=== PATIENT | male | born 1955 | race Caucasian/White ===

== ENCOUNTER 2021-02-18 14:46 | Inpatient (IN) | payer BC ==
[~2021-02-18] VITALS: Ht 180.3 cm; Wt 91.6 kg
[~2021-02-18 14:46] MED LIST: COZAAR 25 MG TA25 M1; DESIPRAMINE 2525 M1; LIPITOR 10 MG10 M1; NORVASC5 MG; ZOLOFT100 MG; [UNRECOGNIZED DRUG - OTHER]
[2021-02-18 16:15] VITALS: BP 136/89
[2021-02-18 17:11] LABS: APTT 48.4 Seconds (24.5-32.8); HEMATOCRIT 42.2 % (42.0-52.0); HEMOGLOBIN 13.9 gm/dL (14.0-18.0); INR 0.97; MCH 30.6 pg (26.0-34.0); MCV 92.6 fL (80.0-100.0); PROTIME 10.6 Seconds (10.5-12.1); RBC 4.55 mil/uL (4.50-6.00); RDW 15.4 % (10.5-14.5); WBC 10.5 thou/uL (4.0-11.0)
[2021-02-18 17:25] LABS: ALBUMIN 3.3 g/dL (3.4-5.0); ANION GAP 9 mmol/L (7-16); BUN 20 mg/dL (7-18); CALCIUM 8.7 mg/dL (8.5-10.1); CHLORIDE 102 mmol/L (98-107); CHOLESTEROL 235 mg/dL (<200); CO2 25 mmol/L (21-32); CREATININE 1.1 mg/dL (0.7-1.3); GLUCOSE 85 mg/dL (74-106); HDL CHOLESTEROL 58 mg/dL (>40); LDL CHOLESTEROL 163 mg/dL (<100); POTASSIUM 4.2 mmol/L (3.5-5.1); SGOT 46 U/L (15-37); SGPT 75 U/L (30-65); SODIUM 136 mmol/L (136-145); TC:HDL 4.1 Ratio (Not establshd); TOTAL BILIRUBIN 0.3 mg/dL (0.2-1.0); TOTAL PROTEIN 7.4 g/dL (6.4-8.2); TRIGLYCERIDE 73 mg/dL (<150); VLDL 15 mg/dL (<40)
[2021-02-18] MEDS ORDERED: OMEPRAZOLE 20 M20 M1 PO (18:50)
[2021-02-18] MEDS ORDERED: BUPROPION XL300 MG PO (18:50)
[2021-02-18] MEDS ORDERED: QUETIAPINE FUM300 MG PO (18:51)
[2021-02-18] MEDS ORDERED: FLUOXETINE HCL40 MG PO (18:55)
[2021-02-18] MEDS ORDERED: COLACE100 MG PO (18:56)
--- NOTE | 2021-02-18 19:43 | NUR ---
PT ARRIVED FROM [facility] VIA AMBULANCE. PT WAS SEEN IN THE ER AT [facility] FOR CHEST PAIN AND WAS DISCOVERED TO HAVE ELEVATED TROPONIN. PT RECEIVED NITRO X2, ASA, AND HEPARIN IN [facility]. UPON ARRIVAL PT WAS SEEN BY DR. AVENDANO, STAT APTT WAS ORDERED AND HEPARIN RESTARTED.
[2021-02-18 20:15] VITALS: BP 108/70
[2021-02-18 21:23] LABS: URINE BILIRUBIN NEGATIVE (Negative); URINE BLOOD 2+ (Negative); URINE CLARITY CLEAR; URINE COLOR YELLOW; URINE GLUCOSE-RANDOM* NEGATIVE (Negative); URINE KETONES NEGATIVE (Negative); URINE LEUKOCYTES NEGATIVE (Negative); URINE NITRITE NEGATIVE (Negative); URINE PROTEIN (DIPSTICK) NEGATIVE (Negative); URINE SPECIFIC GRAVITY 1.025 (1.005-1.035); URINE UROBILINOGEN 0.2 E.U./dl (0.2-1.0)
[2021-02-18 21:34] LABS: CASTS None Seen /LPF (None Seen); SQUAMOUS 0-3 Few /LPF (0-3)
[2021-02-18 21:35] LABS: BACTERIA None Seen /HPF (None Seen); CRYSTALS None Seen /LPF (None Seen); URINE RBC 3-10 Few /HPF (NONE SEEN); URINE WBC None Seen /HPF (NONE SEEN)
--- NOTE | 2021-02-19 04:17 | NUR ---
RECEIEVED THE PATIENT AT 1900H.PATIENT IS ALERT AND ORIENTED X4.ON ROOMA IR BREATHING SPONTANEOUSLY.NO COMPLAINTS OF PAIN.NOT IN DISTRESS.ON HEPARIN DRIP ORDERED, FOLLOWING PROTOCOL.CALLED DR. REYES AND RELAYED CRITICAL HIGH TROPONIN, PATIENT IS NOT HAVING CHEST PAIN, VITALLY STABLLE.ORDERS CARRIED OUT.DESPIRAMINE NOT AVAILABLE IN THIS HOSPITAL, ADVISED PATIENT TO LET HIS BRING THIS MED FROM HOME TO BE SENT TO PHARMACY, SO HE CAN TAKETHIS MED LATER.KEPT NPO FROM MIDNIGHT.ALL NEEDS ATTENDED.
[2021-02-19 04:45] VITALS: BP 94/62
[2021-02-19 08:00] VITALS: BP 97/67
[2021-02-19 08:12] LABS: CALCIUM 9.1 mg/dL (8.5-10.1); CREATININE 1.3 mg/dL (0.7-1.3); POTASSIUM 4.5 mmol/L (3.5-5.1)
--- NOTE | 2021-02-19 09:05 | EKG ---
[address] [place] [address] ELECTROCARDIOGRAM REPORT Name: FLIP LUBIN CATHERINE Room #: 208-P ADM IN .R.#: [id number] Admission: 02/18/21 Attend Phys: Franco East MD Discharge: Date of : 59 Report #: [id number] [facility] Test Date: 2021-02-19 Test Time: 07:58:42 Pat Name: FLIP LUBIN Department: Room: 208 P Gender: M Specialist Field Engineer: BHARGAV : 1955 Requested By: Brooklynn Meadows Order Number: [id number] MD: Patel Snyder Measurements Intervals [place] Rate: 61 P: 52 MD: 164 QRS: -70 QRSD: 107 T: 136 QT: 480 QTc: 484 Interpretive Statements Sinus rhythm Left anterior fascicular block Probable anterior infarct, age indeterminate Lateral leads are also involved No previous ECG available for comparison Electronically Signed On 02-19-2021 9:05:36 VACUUM CLEANER OPERATOR by Patel Snyder [email or web address] <ELECTRONICALLY SIGNED> By: Patel Snyder MD, [facility] 02/19/2105 0758 [id number] Patel Snyder MD, FAC /EPI
[2021-02-19] MEDS ORDERED: PROZAC40 MG PO (09:45)
[2021-02-19] MEDS ORDERED: DESIPRAMINE 2525 M1 PO (09:45)
--- NOTE | 2021-02-19 10:36 | 2DMMODE ---
[facility] [place] [address] 2 D/M-MODE ECHOCARDIOGRAM Name: FLIP LUBIN III Room #: 208-P ADM IN .R.#: [id number] Admission: 02/18/21 Attend Phys: Franco East MD Discharge: Date of : 59 Report #: [id number] THIS REPORT FOR: cc: Mark Tuttle,Bear Luevano MD [facility] ~ ADDENDUM APPROVED REPORT Study performed: 02/19/2021 10:53:27 EXAM: Comprehensive 2D, Doppler, and color-flow Echocardiogram Patient Location: Echo lab Room #: 208 Status: routine BSA: 2.13 HR: 65 bpm BP: 94/62 mmHg Rhythm: NSR Other Information Study Quality: Good Indications Chest pain, elevated troponin, NSTEMI. Hx: HTN, HLP, tobacco abuse, strong family hx of CAD. 2D Dimensions RVDd: 33.61 mm IVSd: 9.43 (7-11mm) LVOT Diam: 23.30 (18-24mm) LVDd: 52.05 mm PWd: 9.18 (7-11mm) LVDs: 35.13 (25-40mm) Left Atrium: 33.31 (27-40mm) Aortic Root: 40.39 mm Volumes Left Atrial Volume (Systole) Single Plane 4CH: 36.84 mL Single Plane 2CH: 47.34 mL LA ESV Index: 22.00 mL/m2 Aortic Valve AoV Peak Miguelito.: 1.50 m/s AO Peak Gr.: 9.01 mmHg LVOT Max P.04 mmHg LVOT Max V: 1.00 m/s [facility] [address] [place] [address] 2 D/M-MODE ECHOCARDIOGRAM Name: FLIP LUBIN III Room #: [address] [place] [address]#: [id number] Admission: 02/18/21 Attend Phys: Franco East, Discharge: Date of : 59 Report #: [id number] MARK ANTHONY Vmax: 2.85 cm2 Mitral Valve E/A Ratio: 0.7 MV Decel. Time: 247.46 ms MV E Max Miguelito.: 0.71 m/s MV A Miguelito.: 0.97 m/s MV PHT: 71.76 ms IVRT: 96.89 ms Pulmonary Valve PV Peak Miguelito.: 0.89 m/s PV Peak Gr.: 3.16 mmHg Pulmonary Vein P Vein S: 0.79 m/s P Vein D: 0.42 m/s P Vein S/D Ratio: 1.88 Tricuspid Valve TR Peak Miguelito.: 2.60 m/s RAP Estimate: 5.00 mmHg TR Peak Gr.: 27.00 mmHg PA Pressure: 32.00 mmHg Left Ventricle The left ventricle is normal size. Regional wall motion abnormalities are noted. There is normal left ventricular wall thickness. Left ventricular systolic function is mild to moderately decreased. LVEF is 40-45%. Mild diastolic dysfunction is present (impaired relaxation pattern). Right Ventricle The right ventricle is normal size. The right ventricular systolic function is normal. Atria The left atrium size is normal. The right atrium size is normal. Aortic Valve The Aortic valve is moderately sclerotic. No aortic regurgitation is present. There is no aortic valvular stenosis. Mitral Valve The mitral valve is normal in structure. Mild mitral annular calcification. There is no mitral valve regurgitation noted. No evidence of mitral valve stenosis. [facility] [address] [place] [address] 2 D/M-MODE ECHOCARDIOGRAM Name: FLIP LUBIN Vick [facility] Room #: [address] [place] [address] [place] [facility].#: [id number] Admission: 02/18/21 Attend Phys: Franco East, Discharge: Date of : 59 Report #: [id number] Tricuspid Valve The tricuspid valve is normal in structure. Mild tricuspid regurgitation. Estimated PAP is 32mmHg. Pulmonic Valve The pulmonary valve is normal in structure. Trace pulmonic regurgitation. Great Vessels The sinuses are mildly dilated at 4.0cm. Ascending aorta is not well visualized. IVC is normal in size and collapses >50% with inspiration. Pericardium There is no pericardial effusion. <Conclusion> Normal left ventricle size/wall thickness Ejection fraction 45% Moderate mid anteroapical/distal septal hypokinesis Normal right ventricle size/function Normal atrial size Aortic valve mildly sclerotic without stenosis Moderate mitral annular calcification Mild tricuspid valve insufficiency Pulmonary systolic pressure estimated 32 mmHg No pericardial effusion Normal aortic root size <ELECTRONICALLY SIGNED> By: Bear Bull MD, FACC 02/19/21 1036 [id number] Bear Bull MD, FACC /INF
--- NOTE | 2021-02-19 11:46 | NUR ---
HI CONSULT [id number] WAS COMPLETED BY THIS APPLIED STATISTICIAN. HE HAD BEEN VISITED BY A [facility] COVER STRIPPER. HIS AND HE WERE BOTH DOING WELL. PROBABLE PROCEDURE TOMORROW.
[2021-02-19 11:50] VITALS: BP 108/66
--- NOTE | 2021-02-19 13:56 | NUR ---
PT AND RN REPORT PT IS UP AD RICARDO IN ROOM S/P NSTEMI AND AWAITING CARDIAC CATH. PT NOT DEEMED TO NECESSISTATE SKILLED P.T. EVALUATION AT THIS TIME PER RN. REQUEST NEW P.T. ORDERS IF PT DEMONSTRATES A DECLINE IN MOBILITY STATUS S/P CARDIAC INTERVENTIONS.
[2021-02-19 16:30] VITALS: BP 124/83
--- NOTE | 2021-02-19 18:28 | NUR ---
ASSESSMENT CHARTED - MEDS PER CHACHA ROSADO DIET AND FLUIDS. NO CO'S OF PAIN OR NAUSEA. UP AD RICARDO IN ROOM - HEPARIN CONTINUES ORDERED - ATPP 70.0 NO CHANGE REQUIRED. PT TO GO TO THE [facility] OR [facility] SALESPERSON IN THE AM - ECHO COMPLETED - PERMIT SIGNED. NO CO'S AT THE PRESENT TIME.
[2021-02-19 19:45] VITALS: BP 117/60
[2021-02-20] VITALS (12 sets, daily range): BP systolic 96–118; BP diastolic 51–77
--- NOTE | 2021-02-20 04:25 | NUR ---
RECEIVED PATIENT AT 1900H.PATIENT IS ALERT AND ORIENTED X4.ON ROOMA IR BREATHING SPONTANEOUSLY.NO COMPLAINTS OF PAIN.NOT IN DISTRESS.KEPT NPO FROM MIDNIGHT, FOR CATH THIS MORNING.HEPARIN DRIP AT 10UNITS/KG/HR.
--- NOTE | 2021-02-20 09:39 | NUR ---
Pt was taken to laboratory animal care veterinarian at 7:45. Gave morning meds before patient left for procedure.
--- NOTE | 2021-02-20 09:40 | NUR ---
Pt returned form receiver/laborer at 0930. No concerns at this time. will continue to monitor
--- NOTE | 2021-02-20 17:36 | CATHLAB ---
[facility] [place] [address] INVASIVE PROCEDURE REPORT Name: FLIP LUBIN III Room #: 208-P ADM IN M.R.#: [id number] Admission: 02/18/21 Attend Phys: Franco East MD Discharge: Date of : 59 Report #: [id number] THIS REPORT FOR: cc: Mark Tuttle Vincent DO Mancuso, Gerald M. MD [facility] ~ APPROVED REPORT Study performed: 02/20/2021 07:31:36 Patient Details Patient Status: In-Patient Room #: The patient is a 65 year-old male Event Personnel Iván Johnson Boat Fueler, Gilda Luna RTR Monitor, Carol Jensen RTR ScrubAwais Dexter RN utility operator yarn Performed Art Access - R femoral artery* Left Heart Cath w/or w/o Coronaries [id number] [facility] [address] Place w/wo Plasty Single DIAG 445155 Aortogram Abdominal Peripheral Angio 588875 Hemostasis w/ Mynx 62889 Initial Mod Sed Same Phys/QHP Gr5y 569340 04380 Mod Sed Same Phys/QHP Ea 311614 Procedure Narrative The Right Groin^ was infiltrated with 1% Lidocaine subcutaneous anesthesia. A PINNACLE 6FR Sheath #[id number] sheath was inserted into the RFA^. Coronary angiography was performed using coronary diagnostic catheters. The right coronary system was accessed and visualized with a JR4 catheter. The left coronary system was accessed and visualized with a JL4 catheter. The left ventricle was accessed and visualized with a STRAIGHT PIGTAIL catheter. Left ventriculogram was performed in 30 degree projection. An aortogram of the abdominal aorta was performed. Closure device was deployed with a Fr MYNXGRIP 6/7F #[id number]. The patient tolerated the procedure well and there were no complications associated with the procedure. There was no hematoma. Intraoperative Conscious Sedation Sedation start time: 7:57 Case end Time: 8:46 Fentanyl 50 mcg Versed 1.[address] [address] INVASIVE PROCEDURE REPORT Name: TRISTIANFLIP [facility] Room #: [address] [place] [address]#: [id number] Admission: 02/18/21 Attend Phys: Franco East, Discharge: Date of : 59 Report #: [id number] Fluoro Time: 5.20 minutes Dose: DAP 9777.00 cGycm2 1426 mGy Contrast Type and Amount: Visipaque 175 ml Hemodynamics The aortic pressure is 120/65 mmHg with a mean of 85 mmHg. The left ventricular pressure is 129/2 mmHg with a mean of mmHg. The left ventricular end diastolic pressure is 21 mmHg. PCI Technique Lesion Percutaneous coronary intervention was performed on the first diagnonal branch segment. A LAUNCHER 6FR EBU 3.75 #[id number] Guide Catheter was used to engage the ostium. A Luge Wire .014 x 182CM #[id number] Interventional Guidewire was used to cross the lesion. BALLOON DILATION A Balloon catheter Sprinter OTW 2.25 x 12 #[id number] was inserted and inflated up to 8.00atm for 21seconds. Additional Inflation: 12.00atm for 29seconds. STENT DEPLOYMENT A drug-eluting stent RESOLUTE ROGER OTW 2.25 X 15 #[id number] was inserted and inflated up to 12.00atm for 27seconds. Additional Inflation: 16.00atm for 22seconds. Conclusion #1 Successful PTCA stent of a subtotal proximal mid diagonal branch lesion moderate distribution. Placement of a 2-5 resolute drug-eluting stent 2.4 mm DEREJE grade III flow. Moderate ostial diagonal narrowing of 50% of the LAD. #2 left main is free of disease giving rise to LAD and circumflex. #3 the LAD is mildly disease extends of the apex. No high-grade occlusive disease. #4 nondominant circumflex with mild disease #5 dominant right coronary with an eccentric 60 to 70% proximal lesion moderate disease in the mid vessel and then distal third has a longer 70% narrowing with a preserved distal vessel PDA JOSE CRUZ #6 normal ventricular size with anterior lateral hypokinesis EF 45 to 50% range #6 abdominal aorta is mildly ectatic but no aneurysm. Recommendations and plan: Continue aggressive risk factor [facility] [address] [place] [address] INVASIVE PROCEDURE REPORT Name: FLIP LUBIN III Room #: 208-P [facility] [place] .#: [id number] Admission: 02/18/21 Attend Phys: Franco East, Discharge: Date of : 59 Report #: [id number] modification. Dual antiplatelet therapy initiated. Transferred to CCU to follow post coronary stent protocol. <ELECTRONICALLY SIGNED> By: Iván Johnson MD, FACC 02/20/211734 34 34 Iván Johnson MD, FACC /INF
[2021-02-21 05:03] VITALS: BP 97/56
[2021-02-21 05:22] LABS: HEMATOCRIT 39.3 % (42.0-52.0); HEMOGLOBIN 13.1 gm/dL (14.0-18.0); MCH 31.1 pg (26.0-34.0); MCHC 33.5 g/dL (28.0-37.0); MCV 93.1 fL (80.0-100.0); RBC 4.22 mil/uL (4.50-6.00); RDW 15.6 % (10.5-14.5); WBC 9.3 thou/uL (4.0-11.0)
--- NOTE | 2021-02-21 08:07 | NUR ---
pt resting quietly in room thru the noc, no c/o pain, right groin remains cdi, pt hopes to go home today, report given to next shift to con't ppoc
[2021-02-21 08:13] VITALS: BP 109/63
[2021-02-21] MEDS ORDERED: BAYER CHEWABLE81 MG PO (08:47)
[2021-02-21] MEDS ORDERED: EFFIENT10 MG PO (08:47)
[2021-02-21] MEDS ORDERED: CRESTOR40 MG PO (08:47)
[2021-02-21] MEDS ORDERED: METOPROLOL TART25 MG PO (08:48)
[2021-02-21 09:45] LABS: CALCIUM 8.8 mg/dL (8.5-10.1); CREATININE 1.5 mg/dL (0.7-1.3); POTASSIUM 4.3 mmol/L (3.5-5.1)
[2021-02-21 11:17] VITALS: BP 108/71
[2021-02-21 14:13] VITALS: BP 108/71
--- NOTE | 2021-02-21 14:28 | NUR ---
PT IS AXOX4, PLEASANT; AT THE BEDSIDE. VSS, AFEBRILE, SR ON THE MONITOR. PT HAS BEEN RESTING COMFORTABLY THROUGHOUT THE DAY, UP AD RICARDO TO TOILET. CARDIOLOGY CONSULTED, DR UNDERWOOD CONSULTED. PT TO D/C HOME WITH NO NEEDS. DISCHARGE EDUCATION COMPLETED. PT AND COMMUNICATED UNDERSTANDING. PT TO D/C HOME WITH VIA PERSONAL VEHICLE. FOLLOW UP APPTS DISCUSSED. NO CONCERNS AT THIS TIME.
[2021-02-21] MEDS ORDERED: LIPITOR80 MG PO (14:31)
== END 2021-02-21 15:23 | disposition home or self-care (01) | DRG 247 ==
LOC: 2N 14:46
PROVIDERS: Hospitalist; Internal Medicine; Nurse Practitioner; ADMIT Internal Medicine; ATTEND Internal Medicine
PROC: B211YZZ Fluoroscopy of Multiple Coronary Arteries using Other Contrast (ICD-10-PCS; principal; 2021-02-20)
PROC: 4A023N7 Measurement of Cardiac Sampling and Pressure, Left Heart, Percutaneous Approach (ICD-10-PCS; principal; 2021-02-20)
PROC: 027034Z Dilation of Coronary Artery, One Artery with Drug-eluting Intraluminal Device, Percutaneous Approach (ICD-10-PCS; principal; 2021-02-20)
PROC: B215YZZ Fluoroscopy of Left Heart using Other Contrast (ICD-10-PCS; principal; 2021-02-20)
PROC: B410YZZ Fluoroscopy of Abdominal Aorta using Other Contrast (ICD-10-PCS; principal; 2021-02-20)
DX: I21.4 Non-ST elevation (NSTEMI) myocardial infarction (principal); F17.210 Nicotine dependence, cigarettes, uncomplicated; F32.9 Major depressive disorder, single episode, unspecified; F41.9 Anxiety disorder, unspecified; I10 Essential (primary) hypertension; E78.00 Pure hypercholesterolemia, unspecified; I25.10 Atherosclerotic heart disease of native coronary artery without angina pectoris; K21.9 Gastro-esophageal reflux disease without esophagitis; Z20.822 Contact with and (suspected) exposure to COVID-19; Z23 Encounter for immunization; Z82.49 Family history of ischemic heart disease and other diseases of the circulatory system; Z71.6 Tobacco abuse counseling
CPT/HCPCS: 10081

== ENCOUNTER → 2021-03-07 | Outpatient (CLI) | payer BC ==
[~2021-03-07] MED LIST changes: +BAYER CHEWABLE81 MG PO; +BUPROPION XL300 MG PO; +COLACE100 MG PO; +CRESTOR40 MG PO; +DESIPRAMINE 2525 M1 PO; +EFFIENT10 MG PO; +FLUOXETINE HCL40 MG PO; +LIPITOR80 MG PO; +METOPROLOL TART25 MG PO; +OMEPRAZOLE 20 M20 M1 PO; +PROZAC40 MG PO; +QUETIAPINE FUM300 MG PO
== END ==
LOC: SJCVC 12:52
PROVIDERS: ATTEND Internal Medicine
DX: I25.10 Atherosclerotic heart disease of native coronary artery without angina pectoris (principal); I10 Essential (primary) hypertension; E78.00 Pure hypercholesterolemia, unspecified; F17.200 Nicotine dependence, unspecified, uncomplicated; Z79.82 Long term (current) use of aspirin; Z79.899 Other long term (current) drug therapy